=== PATIENT | female | born 1980 | race Caucasian/White ===

== ENCOUNTER → 2018-02-24 | Outpatient (CLI) | payer BC ==
[~2018-02-24] MED LIST: FERR325T51 PO; PRENTAB26 PO
--- NOTE | 2018-02-24 12:41 | MAMMOGRAPHY REPORT ---
BILATERAL DIGITAL DIAGNOSTIC MAMMOGRAM TOMOSYNTHESIS WITH CAD AND TARGETED LEFT ULTRASOUND: 02/24/2018 CLINICAL HISTORY: The patient reports a palpable lump in her left breast. TECHNIQUE: Breast tomosynthesis in addition to standard 2D mammography was performed. Current study was also evaluated with a Computer Aided Detection (CAD) system. Bilateral CC and MLO 2D and tomosyn thesis images were obtained. COMPARISON: Comparison is made to exams dated: 08/10/2016 mammogram and 08/10/2016 ultrasound - [facility]. BREAST COMPOSITION: The tissue of both breasts is heterogeneously dense, which may obscure small mas ses. FINDINGS: A triangle marker lynn the site of the palpable lump in the left lateral breast at approxi mately 3 to 4:00. There are no suspicious masses or other suspicious mammographic abnormalities note d in this region. The remainder of both breasts are stable mammographically compared to the prior 20 16 exam, without suspicious masses, calcifications, or areas of architectural distortion noted. Targeted ultrasound was performed of the area of the palpable lump pointed out by the patient, in the left breast at approximately 4:00, centered around 1 cm from the nipple. Sonographically normal tis dee is seen in this region, without evidence of a mass or other suspicious sonographic abnormality. IMPRESSION: ACR BI-RADS CATEGORY 1: NEGATIVE, TARGETED ULTRASOUND ACR BI-RADS CATEGORY 1: NEGATIVE No suspicious mammographic or sonographic abnormality at the site of the palpable left breast lump po inted out by the patient. There is no mammographic or targeted sonographic evidence of malignancy. Recommend clinical follow-up for the palpable left breast lump, and recommend routine bilateral scree olga mammograms starting at the age of 40 unless otherwise clinically indicated. The patient has been verbally notified of the results. Approximately 10% of breast cancers are not detected with mammography. A negative mammographic report should not delay biopsy if a clinically suggestive mass is present. Farheen Louis M.D. ah/:02/24/2018 10:04:44 Sausage Cooker: Johanna AYERS(R)(M), [facility] letter sent: Normal 1/2 BI-RADS Code: ACR BI-RADS Category 1: Negative Ultrasound BI-RADS: ACR BI-RADS Category 1: Negative
== END | disposition home or self-care (01) ==
LOC: C.MAMM 09:23
PROVIDERS: ATTEND Obstetrics & Gynecology
DX: N63.20 Unspecified lump in the left breast, unspecified quadrant (principal)